=== PATIENT | male | born 1955 | race Caucasian/White ===

== ENCOUNTER → 2017-09-24 09:56 | Outpatient (CLI) | payer OTHER, SELFPAY ==
[2017-09-24 10:38] LABS: Hemoglobin A1C 5.9 % (0.0-7.0)
[2017-09-24 11:00] LABS: Alanine Aminotransferase 56 U/L (12-78); Albumin Level 3.8 gm/dL (3.4-5.0); Alkaline Phosphatase 66 U/L (46-116); Anion Gap 10.9 mEq/L (5-15); Aspartate Amino Transferase 30 U/L (15-37); Bilirubin,Total 0.8 mg/dL (0.2-1.0); Blood Urea Nitrogen 15 mg/dL (7-18); Calcium 8.4 mg/dL (8.5-10.1); Carbon Dioxide 28 mmol/L (21.0-32.0); Chloride 101 mmol/L (98-107); Chol/HDL Ratio 3.9 (1-3.5); Cholesterol 174 mg/dL (140-200); Creatinine,Serum 0.89 mg/dL (0.70-1.30); Estimated Glomerular Filt Rate 86 ml/min (>60); GFR (African American) 104 ML/MIN (>60); Globulin 3.7 gm/dl (1.3-3.2); Glucose 135 mg/dL (74-106); HDL Cholesterol 45 mg/dL (27-67); LDL Cholesterol 86 mg/dL (0-130); Potassium 3.9 mmoL/L (3.5-5.1); Prostate Specific Ag Screen 0.5 ng/mL (0.0-4.0); Sodium 136 mmol/L (136-145); Total Protein,Serum 7.5 gm/dL (6.4-8.2); Triglycerides 213 mg/dL (30-200); Uric Acid 6.5 mg/dL (2.6-7.2); VLDL Cholesterol 43 mg/dL (0-40)
[2017-09-24 12:07] LABS: Erythrocyte Sedimentation Rate 10 mm/hr (0-20)
== END ==
PROVIDERS: PCP Internal Medicine Adolescent Medicine; Visit Provider Nurse Practitioner Family
DX: R73.9 Hyperglycemia, unspecified (principal); R35.1 Nocturia; E78.2 Mixed hyperlipidemia; M10.9 Gout, unspecified
CPT/HCPCS: 36415; 80053; 80061; 83036; 84550; 85651; G0103

== ENCOUNTER → 2018-08-03 07:47 | Outpatient (CLI) | payer OTHER, SELFPAY ==
--- NOTE | 2018-08-03 07:50 | US_ITS ---
US gallbladder Ordering Physician: Sean Sellers MD Patient Age: 63 years: Male HISTORY: ITS.REASON: RUQ PAIN Upper abdominal pain TECHNIQUE: Ultrasound right upper quadrant COMPARISON : CT abdomen 11/19/2017 FINDINGS Pancreas. Moderate/Generous volume pancreas throughout, but no focal lesion.. Likely diffuse fatty changes. No pancreatic ductal dilatation. No fluid collection. . No ductal dilatation. Gallbladder. Upper normal size. No wall thickening. Sludge noted but No gallstones. 9.9 cm in length. With Septations.. Liver. Diffuse homogeneous increased echogenicity with diffuse fatty changes liver. Portal vein mildly enlarged measures up to 1.7 cm just medial to hilum of the liver. . It appears to have have normal flow direction. It Hepatic veins unremarkable. Common duct. Normal diameter 3.6 mm at the charisse hepatis region. Right kidney. 12.8 seem in length. Appears normal. Cortex well-maintained no hydronephrosis or mass. ----- IMPRESSION -------- 1. Hepatic steatosis. Diffuse homogeneous fatty changes of liver. 2. Slight dilated portal vein measures 1.6 cm. But demonstrates normal direction flow Nonspecific but can be seen with developing portal hypertension 3.. Gallbladder. Upper normal size no wall thickening or inflammation.. No gallstones. Minimal sludge. 4. Common duct normal
== END ==
PROVIDERS: PCP Internal Medicine Adolescent Medicine; Visit Provider Internal Medicine Adolescent Medicine
DX: R10.11 Right upper quadrant pain (principal)
CPT/HCPCS: 76705

== ENCOUNTER → 2018-08-10 10:17 | Outpatient (CLI) | payer OTHER, SELFPAY ==
--- NOTE | 2018-08-10 10:26 | NM_ITS ---
NM hepatobiliary wo pharm HISTORY: Right upper quadrant pain following eating ITS.REASON: ABD PAIN ORDERING PHYSICIAN: Sean Sellers MD PATIENT AGE: 63 years COMPARISON: 08/03/2018 DOSE: 8.42 MCI TC Choletec injected into LT hand Fatty Meal: Ensure. No pain reported with the fatty meal FINDINGS: Homogeneous activity is present within the hepatic parenchyma. Activity is present in the gallbladder by 30 minutes. Activity is present in the small bowel by 10 minutes. The gallbladder ejection fraction is calculated to be 17%. There was moderate amount of activity within the small bowel before the fatty meal was given which may contribute to the low gallbladder ejection fraction. The patient did not report pain or other symptoms during the fatty meal. IMPRESSION: 1. No evidence of common or cystic duct obstruction. 2. Low gallbladder ejection fraction of 17 %
--- NOTE | 2018-08-10 12:06 | HMH.ITSHM ---
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 []aspirin
== END ==
PROVIDERS: PCP Internal Medicine Adolescent Medicine; Visit Provider Internal Medicine Adolescent Medicine
DX: R10.11 Right upper quadrant pain (principal)
CPT/HCPCS: 78226; A9537

== ENCOUNTER → 2018-09-11 14:50 | Outpatient (CLI) | payer OTHER, SELFPAY ==
[2018-09-11 16:15] LABS: Basophils # 0.1 K/mm3 (0-0.2); Basophils % 1.2 % (0.1-2.0); Eosinophils # 0.3 K/mm3 (0.0-0.4); Eosinophils % 3.8 % (0.1-12.0); Hematocrit 45.2 % (42.0-52.0); Lymphocytes # 1.9 K/mm3 (0.7-4.5); Lymphocytes % 28.3 % (10-50); Mean Corpuscular HGB Conc 33.1 g/dL (31.8-35.4); Mean Corpuscular Hemoglobin 32.4 pg (27.0-31.2); Mean Corpuscular Volume 97.9 fl (80-94); Mean Platelet Volume 6.8 fl (7.4-10.4); Monocytes # 0.4 K/mm3 (0.1-1.0); Monocytes % 5.9 % (1.7-9.3); Neutrophils # 4.1 K/mm3 (1.8-7.8); Neutrophils % 60.9 % (37.0-80.0); Platelet Count 153 K/mm3 (142-424); Red Blood Count 4.62 M/mm3 (4.60-6.20); Red Cell Distribution Width 13.5 % (11.5-17.5); White Blood Count 6.8 K/mm3 (4.8-10.8)
[2018-09-11 16:20] LABS: Alanine Aminotransferase 51 U/L (12-78); Albumin Level 3.6 gm/dL (3.4-5.0); Albumin/Globulin Ratio 0.9 (1.1-1.8); Alkaline Phosphatase 80 U/L (46-116); Anion Gap 14.5 mEq/L (5-15); Bilirubin,Total 0.3 mg/dL (0.2-1.0); Blood Urea Nitrogen 17 mg/dL (7-18); Calcium 8.9 mg/dL (8.5-10.1); Carbon Dioxide 28 mmol/L (21.0-32.0); Chloride 103 mmol/L (98-107); Creatinine,Serum 1.02 mg/dL (0.70-1.30); Estimated Glomerular Filt Rate 73 ml/min (>60); GFR (African American) 89 ML/MIN (>60); Globulin 3.8 gm/dl (1.3-3.2); Sodium 141 mmol/L (136-145); Total Protein,Serum 7.4 gm/dL (6.4-8.2)
[2018-09-11 16:24] LABS: Aspartate Amino Transferase 41 U/L (15-37); Potassium 4.5 mmoL/L (3.5-5.1)
[2018-09-11 16:30] LABS: Glucose 162 mg/dL (74-106)
== END ==
PROVIDERS: Visit Provider Surgery
DX: K82.8 Other specified diseases of gallbladder (principal)
CPT/HCPCS: 36415; 80053; 85025; 93005

== ENCOUNTER → 2019-05-24 07:05 | Outpatient (CLI) | payer OTHER, SELFPAY ==
[2019-05-24 07:44] LABS: Basophils # 0.1 K/mm3 (0-0.2); Basophils % 1.2 % (0.1-2.0); Eosinophils # 0.3 K/mm3 (0.0-0.4); Eosinophils % 4.4 % (0.1-12.0); Hematocrit 46.9 % (42.0-52.0); Hemoglobin 14.9 g/dL (14.1-18.0); Lymphocytes # 1.9 K/mm3 (0.7-4.5); Lymphocytes % 27.8 % (10-50); Mean Corpuscular HGB Conc 31.8 g/dL (31.8-35.4); Mean Corpuscular Hemoglobin 32.1 pg (27.0-31.2); Mean Corpuscular Volume 101.1 fl (80-94); Mean Platelet Volume 7.1 fl (7.4-10.4); Monocytes # 0.5 K/mm3 (0.1-1.0); Monocytes % 7.5 % (1.7-9.3); Neutrophils # 4.1 K/mm3 (1.8-7.8); Neutrophils % 59.1 % (37.0-80.0); Platelet Count 165 K/mm3 (142-424); Red Blood Count 4.64 M/mm3 (4.60-6.20)
[2019-05-24 09:03] LABS: Alanine Aminotransferase 40 U/L (12-78); Albumin Level 3.6 gm/dL (3.4-5.0); Alkaline Phosphatase 76 U/L (46-116); Aspartate Amino Transferase 24 U/L (15-37); Bilirubin,Total 0.3 mg/dL (0.2-1.0); Blood Urea Nitrogen 17 mg/dL (7-18); Calcium 8.8 mg/dL (8.5-10.1); Carbon Dioxide 30 mmol/L (21.0-32.0); Chloride 103 mmol/L (98-107); Chol/HDL Ratio 4.7 (1-3.5); Cholesterol 191 mg/dL (140-200); Creatinine,Serum 0.98 mg/dL (0.70-1.30); Estimated Glomerular Filt Rate 77 ml/min (>60); GFR (African American) 93 ML/MIN (>60); Globulin 3.7 gm/dl (1.3-3.2); Glucose 140 mg/dL (74-106); HDL Cholesterol 41 mg/dL (27-67); LDL Cholesterol 74 mg/dL (0-130); Prostate Specific Ag Screen 0.9 ng/mL (0.0-4.0); Sodium 140 mmol/L (136-145); Total Protein,Serum 7.3 gm/dL (6.4-8.2); Triglycerides 379 mg/dL (30-200); Uric Acid 7.6 mg/dL (2.6-7.2); VLDL Cholesterol 76 mg/dL (0-40)
[2019-05-24 09:37] LABS: Erythrocyte Sedimentation Rate 17 mm/hr (0-20)
== END ==
PROVIDERS: Visit Provider Internal Medicine Adolescent Medicine
DX: Z12.5 Encounter for screening for malignant neoplasm of prostate (principal); E78.5 Hyperlipidemia, unspecified; M10.9 Gout, unspecified
CPT/HCPCS: 36415; 80053; 80061; 84550; 85025; 85651; G0103

== ENCOUNTER 2020-01-22 17:00 | Outpatient (RCR) | payer OTHER, SELFPAY ==
--- NOTE | 2020-01-15 16:58 | HMH.PTOPEV ---
PT Outpatient Evaluation Rehab PT Outpatient Evaluation Start: 01/15/20 16:14 Freq: Status: Active Protocol: Document 01/15/20 16:15 SENAMACO (Rec: 01/15/20 16:58 ROMAINE [id number]) Electronically Signed By Petar Sequeira PT 01/15/20 16:15 Outpatient Therapy Subjective History Subjective History This is the initial Physical Therapy evaluation for Luis F Rodriguez. Pt is a 64 y/o male referred to PT for c/o RLE and buttocks pain. Pt reports pain began ~ 2-3 weeks ago while plaing golf. Pt reports he was half way through the course when he felt a pop and pain in the R buttocks on the follow through of the swing. Pt reports pain was in R Ischial tuberosity, piriformis area in buttocks. Pt reports after that if he sits in hard chair he begins to have pain zakia RLE down to lateral calf. Pt reports some improvement since initial injury. Chief Complaint Pain,Stiff Symptom Type Ache,Throb,Sharp Symptoms Relieved By Rest/Positioning,Heat,OTC Meds Symptoms Aggravated By Sitting Prior Functional Limitations None Current Functional Limitations Desk Work/Reading,Recreation Activity Level of pain today (0-10) 2 Pain scale - at its best (0-10) 1 Pain scale - at its worst (0-10) 6 Lumbopelvic Eval Palapation tenderness right lumbar spinal tenderness No paraspinal tenderness No buttock tenderness Yes tenderness over symphysis pubis No Lumbar/Sacral Palpation Findings Tenderness Lumbar/Sacral Palpation Overall Comment TTP R SIJ, R Glut Mm, R greater troch Range of Motion Lumbar Spine ROM Reason Not Measured Within Functional Limits Special Tests Lumbar Spine Screen Negative Forward Bending Test- Standing Negative Left,Negative Right Forward Bending Test- Sitting Negative Left,Negative Right Hip Scouring (Quadrant) Test Negative Left,Negative Right Hip Piriformis Test Positive Right Sciatic Nerve Tension Test Negative Left,Negative Right Hip 90-90 Straight Leg Raise Test Negative Left,Negative Right Unilateral Straight Leg Raise (Lasegue) Negative Left,Negative Right Test Sacroiliac Joint Compression Test Negative Left,Negative Right Outpatient Therapy Assessment
== END 2020-01-22 17:05 | disposition home or self-care (01) ==
LOC: PT 17:00
PROVIDERS: PCP Internal Medicine Adolescent Medicine; Visit Provider Internal Medicine Adolescent Medicine
DX: G57.01 Lesion of sciatic nerve, right lower limb (principal)
CPT/HCPCS: 97010; 97014; 97163; G0283

== ENCOUNTER → 2020-07-15 15:52 | Outpatient (CLI) | payer OTHER, SELFPAY ==
--- NOTE | 2020-07-15 | XR_ITS ---
PROCEDURE: XR ORTHOPANTOGRAM CLINICAL INDICATION: ABCESSED TOOTH COMPARISON: No exams were available for comparison FINDINGS: No fracture or dislocation. No lytic or blastic change. There is normal mineralization. There are bilateral fillings. Lucency is noted over the lateral aspect of the medial incisor of the maxilla suggesting caries formation. Please correlate with physical exam. No mandibular abnormalities evident. The TMJs are unremarkable. There is missing lateral maxillary incisor with some irregular increased density at the tooth site. Maxillofacial CT may provide more thorough evaluation. Other findings:None. IMPRESSION: Possible caries of the medial maxillary incisor with missing lateral maxillary incisor with some irregular density at this region etiology indeterminate. Consider maxillofacial CT for more thorough evaluation. Dictated by: Joon Angel MD 07/15/2020 16:53 Joon Angel MD in OV 07/15/2020 16:53
== END ==
PROVIDERS: PCP Internal Medicine Adolescent Medicine; Visit Provider Internal Medicine Adolescent Medicine
DX: K04.7 Periapical abscess without sinus (principal)
CPT/HCPCS: 70355

== ENCOUNTER → 2020-08-06 10:01 | Outpatient (CLI) | payer OTHER, SELFPAY ==
[2020-08-07 10:25] LABS: Covid-19 Nasal PCR Sendout P&C Positive
== END ==
PROVIDERS: PCP Internal Medicine Adolescent Medicine; Visit Provider Internal Medicine Adolescent Medicine
DX: Z20.828 Contact with and (suspected) exposure to other viral communicable diseases (principal); U07.1 COVID-19
CPT/HCPCS: U0004

== ENCOUNTER → 2021-07-23 10:04 | Outpatient (CLI) | payer MEDICARE, SELFPAY ==
[2021-07-23 10:23] LABS: Basophils # 0.1 K/mm3 (0-0.2); Basophils % 0.9 % (0.1-2.0); Eosinophils # 0.3 K/mm3 (0.0-0.4); Eosinophils % 4.8 % (0.1-12.0); Hematocrit 45.2 % (42.0-52.0); Hemoglobin 15.9 g/dL (14.1-18.0); Lymphocytes # 1.9 K/mm3 (0.7-4.5); Mean Corpuscular HGB Conc 35.1 g/dL (31.8-35.4); Mean Corpuscular Hemoglobin 33.9 pg (27.0-31.2); Mean Corpuscular Volume 96.7 fl (80-94); Mean Platelet Volume 7.3 fl (7.4-10.4); Monocytes # 0.5 K/mm3 (0.1-1.0); Monocytes % 6.5 % (1.7-9.3); Neutrophils # 4.1 K/mm3 (1.8-7.8); Neutrophils % 59.8 % (37.0-80.0); Platelet Count 150 K/mm3 (142-424); Red Blood Count 4.68 M/mm3 (4.60-6.20); White Blood Count 6.9 K/mm3 (4.8-10.8)
[2021-07-23 10:37] LABS: Hemoglobin A1C 5.2 % (4.0-6.0)
[2021-07-23 11:13] LABS: Alanine Aminotransferase 35 U/L (12-78); Albumin Level 4.2 g/dl (3.5-5.0); Albumin/Globulin Ratio 1.4 (1.1-1.8); Alkaline Phosphatase 67 U/L (38-126); Anion Gap 10.9 mEq/L (5-15); Aspartate Amino Transferase 39 U/L (17-59); Bilirubin,Total 0.5 mg/dl (0.2-1.3); Blood Urea Nitrogen 18 mg/dl (9-20); Calcium 9.2 mg/dl (8.4-10.2); Carbon Dioxide 30 mmol/L (22.0-30.0); Chloride 101 mmol/L (98-107); Chol/HDL Ratio 3.8 (1-3.5); Cholesterol 190 mg/dl (140-200); Estimated Glomerular Filt Rate 84 ml/min (>60); GFR (African American) 102 ML/MIN (>60); Globulin 3.1 g/dL (1.3-3.2); Glucose 113 mg/dl (74-100); HDL Cholesterol 50 mg/dl (40-60); Potassium 4.9 mmoL/L (3.5-5.1); Sodium 137 mmol/L (136-145); Total Protein,Serum 7.3 g/dl (6.3-8.2); Triglycerides 199 mg/dl (30-150); Uric Acid 7.4 mg/dl (3.5-8.5); VLDL Cholesterol 40 mg/dL (0-40)
[2021-07-23 11:24] LABS: Direct LDL Cholesterol 113.12 mg/dL (100-129)
== END ==
PROVIDERS: Visit Provider Internal Medicine Adolescent Medicine
DX: E78.5 Hyperlipidemia, unspecified (principal); R73.9 Hyperglycemia, unspecified; M10.9 Gout, unspecified
CPT/HCPCS: 36415; 80053; 80061; 83036; 84550; 85025

== ENCOUNTER 2022-06-22 07:15 | Day surgery (SDC) | payer MEDICARE, SELFPAY ==
[2022-06-22 07:33] VITALS: BP 153/58; PULSE 65; RESP 18; TEMP 36.3; O2SAT 99; BMI 37.4
--- NOTE | 2022-06-22 07:42 | P.PN_ITS ---
[facility] [place] Medical History (Updated 06/22/22 @ 07:31 by Daryl Choi RN) No significant past medical history Surgical History (Updated 06/22/22 @ 07:31 by Daryl Choi RN) History of cholecystectomy Family History (Updated 06/22/22 @ 07:32 by Daryl Choi RN) Other Family history of diabetes mellitus Social History (Updated 06/22/22 @ 07:33 by Daryl Choi RN) Smoking Status: Never smoker alcohol intake: never substance use type: denies use current occupational status: employed and retired Travel in the last 8 weeks: None current occupational exposures/hazards: No caffeine: No [facility] Anesthesia Checklist Patient Identification Patient Identification: Verbal (Name & ) Structural Data Admitted From: Home Planned Operative Procedure/s: colonoscopy Consent for Planned Operative Procedure(s) Verified: Yes Additional verifications Anesthesia Reactions: No Hx Blood Transfusions: No Blood Transfusion Reaction: No Airway Assessment C-Spine Mobility Assessed: Yes TMJ Mobility Assessed: Yes Dentition: Good Dentition Neurological Assessment Level of Consciousness: Awake, Alert and Appropriate Anesthesia Plan Anesthesia Risk discussed: Yes Anesthesia Plan: Verified ASA Class: II Anesthesia Type: MAC
[2022-06-22 08:24] VITALS: O2SAT 98
--- NOTE | 2022-06-22 09:02 | HMH.SCOPE ---
Procedure: Date: 06/22/22 Patient Date of :: 1955 Procedure Performed:: Colonoscopy with polypectomy by means other than snare Indications:: Screening Performing Provider:: Eric Suazo MD Referring Provider:: . Sedation:: Monitored anesthesia care Procedure:: After informed consent was obtained the patient was taken to the endoscopy suite. Sedation ensued after the patient was transferred to the left lateral decubitus position. Pulse, blood pressure, and oxygen saturation were monitored throughout the procedure. Digital rectal exam revealed no significant abnormality. The colonoscope was placed in position. The entire colon was evaluated. The colonoscope was carefully removed and the patient was transferred to recovery in stable condition. Please see findings and specimens below for detail. Findings:: Bowel preparation moderate Hemorrhoidal cushions Profound lack of relaxation/spasticity Mild scattered sigmoid diverticulosis Colon polyps (see specimens) Specimens:: 3 adjacent sessile right colon polyps (cold snare and cold biopsy forceps) Mid right colon polyp (cold snare) Recommendations:: Timing of repeat colonoscopy is pending pathology but will likely be around 1 year with extended bowel preparation. Complications:: No immediate Estimated blood obtained (mL): 1
[2022-06-22 09:05] VITALS: BP 101/53; PULSE 71; RESP 16; TEMP 36.1; O2SAT 97
[2022-06-22 09:15] VITALS: BP 118/61; PULSE 68; RESP 18; O2SAT 97
[2022-06-22 09:25] VITALS: BP 121/68; PULSE 61; RESP 17; TEMP 36.3; O2SAT 98
[2022-06-22 09:35] VITALS: BP 136/73; PULSE 65; RESP 17; O2SAT 98
== END 2022-06-22 09:45 | disposition home or self-care (01) ==
PROVIDERS: PCP Internal Medicine Adolescent Medicine; Visit Provider Surgery
PROC: 0DJD8ZZ Inspection of Lower Intestinal Tract, Via Natural or Artificial Opening Endoscopic (ICD-10-PCS; principal; 2022-06-22 08:30)
DX: Z12.11 Encounter for screening for malignant neoplasm of colon (principal); D12.6 Benign neoplasm of colon, unspecified
CPT/HCPCS: 45380; 45385; 88305; J2704

== ENCOUNTER 2023-07-24 01:03 | Inpatient (IN) | payer MEDICARE, SELFPAY ==
[2023-07-24] VITALS (20 sets, daily range): BP systolic 106–148; BP diastolic 40–92; PULSE 56–145; RESP 13–19; TEMP 36.4–36.8; O2SAT 93–97; BMI 39.0; BMI 40.0
--- NOTE | 2023-07-24 01:13 | ECG_ITS ---
APPROVED REPORT Exam: Resting ECG HR:132 bpm ECG Measurements Heart Rate 132 AXES QRSd 129 QRS -59 QT 319 T 113 QTc 397 Conclusion ATRIAL FIBRILLATION WITH RAPID VENTRICULAR RESPONSE LEFT ANTERIOR FASCICULAR BLOCK [QRS AXIS <= -45, QR IN I, RS IN II] VOLTAGE CRITERIA FOR LVH [MEETS CRITERIA IN ONE OF: R(aVL), S(V1), R(V5), R(V5/V6)+S(V1)] POSSIBLE ANTERIOR MYOCARDIAL INFARCTION , PROBABLY OLD [30 ms Q WAVE IN V3/V4, OR R < 0.2 mV IN V4] ST DEVIATION AND MODERATE T-WAVE ABNORMALITY, CONSIDER LATERAL ISCHEMIA [-0.1+ mV T-WAVE IN I/aVL/V5/V6] ABNORMAL ECG UNCONFIRMED REPORT Electronically signed by : Sean Sellers MD 07/24/2023 07:32:14
[2023-07-24 01:38] LABS: Basophils # 0.1 K/mm3 (0-0.2); Basophils % 1.1 % (0.1-2.0); Eosinophils # 0.3 K/mm3 (0.0-0.4); Hematocrit 46.5 % (42.0-52.0); Hemoglobin 15.9 g/dL (14.1-18.0); Lymphocytes # 2.4 K/mm3 (0.7-4.5); Lymphocytes % 33.3 % (10-50); Mean Corpuscular HGB Conc 34.3 g/dL (31.8-35.4); Mean Corpuscular Hemoglobin 32.9 pg (27.0-31.2); Mean Corpuscular Volume 95.9 fl (80-94); Mean Platelet Volume 7.9 fl (7.4-10.4); Monocytes # 0.6 K/mm3 (0.1-1.0); Monocytes % 8.4 % (1.7-9.3); Neutrophils # 3.8 K/mm3 (1.8-7.8); Neutrophils % 53.4 % (37.0-80.0); Platelet Count 128 K/mm3 (142-424); Red Blood Count 4.85 M/mm3 (4.60-6.20); Red Cell Distribution Width 13.2 % (11.5-17.5); White Blood Count 7.1 K/mm3 (4.8-10.8)
[2023-07-24 01:42] LABS: Alanine Aminotransferase 54 U/L (12-78); Albumin Level 4.6 g/dl (3.5-5.0); Albumin/Globulin Ratio 1.3 (1.1-1.8); Alkaline Phosphatase 76 U/L (38-126); Anion Gap 12.5 mEq/L (5-15); Aspartate Amino Transferase 54 U/L (17-59); Bilirubin,Total 0.4 mg/dl (0.2-1.3); Blood Urea Nitrogen 12 mg/dl (9-20); Calcium 9.5 mg/dl (8.4-10.2); Carbon Dioxide 27 mmol/L (22.0-30.0); Chloride 100 mmol/L (98-107); Creatinine Clearance Estimated 127 mL/min (50-200); Estimated Glomerular Filt Rate 83 ml/min (>60); GFR (African American) 101 ML/MIN (>60); Globulin 3.5 g/dL (1.3-3.2); Glucose 114 mg/dl (74-100); Magnesium 1.8 mg/dl (1.6-2.3); Potassium 3.5 mmoL/L (3.5-5.1); Sodium 136 mmol/L (136-145); Total Protein,Serum 8.1 g/dl (6.3-8.2)
--- NOTE | 2023-07-24 01:53 | HMH.EDGENADL ---
Discharge Plan Disposition Patient Disposition: Admitted Chief Complaint: Arrhythmia/Palpitations Prescriptions Prescriptions: New rivaroxaban 15 mg tablet 15 mg PO DAILY Qty: 30 0RF diltiazem HCl 60 mg tablet 60 mg PO QID Qty: 120 0RF No Action aspirin 81 mg tablet,delayed release (DR/EC) 81 mg PO DAILY Referrals Follow up/Referrals: Sean Sellers MD [Primary Care Provider] - See instructions Clinical Impressions Clinical Impression: Atrial fibrillation with rapid ventricular response, Acute non-ST elevation myocardial infarction (NSTEMI) Discharge ED Provider: Drew Mcdaniel General Adult HPI General Chief complaint: Arrhythmia/Palpitations Stated complaint: Irregular Heart Rate Time Seen by Provider: 07/24/23 01:06 Mode of Arrival: Wheelchair Source of Information: Patient Limitations: No Limitations Description of Symptoms (Recalled from ER Triage Doc. by RN): pt reports waking up about 15 minutes ago feeling as if he had to belch, pt reports taking Tums with no relief, states felt his pulse and it felt irregular, denies SOA or N/V or chest pain History of Present Illness HPI narrative: 68-year-old male, history of obesity, no reported cardiac history, presents with palpitations. He reports that he woke up shortly prior to arrival feeling like he needed to belch. He felt like his heart rate was fast and irregular and skipping. He denies any chest pain shortness of breath. He has never had any issues with irregular heart rhythm in the past. He reports no recent fever or illness. He reports that he did have approximately 5 mixed drinks at a [employer] green party last night before arrival. Related Data Home Medications Medication Instructions Recorded Confirmed aspirin 81 mg tablet,delayed 81 mg PO DAILY Blood thinner 08/30/18 06/30/22 release Previous Rx's Medication Instructions Recorded diltiazem HCl 60 mg tablet 60 mg PO QID #120 tabs 07/24/23 rivaroxaban 15 mg tablet 15 mg PO DAILY #30 tabs 07/24/23 Allergies Allergy/AdvReac Type Severity Reaction Status Date / Time No Known Allergies Allergy Verified 06/30/22 09:38 [facility] Disclaimer: The information contained in this section may have been updated after the patient was seen, as this information can be updated by other users. Medical History (Updated 07/24/23 @ 04:05 by Drew Mcdaniel MD) No significant past medical history Surgical History (Updated 06/30/22 @ 09:39 by GAVIOTA Jones) History of cholecystectomy History of colonoscopy Family History Other Family history of diabetes mellitus Social History Smoking Status: Never smoker alcohol intake: never substance use type: denies use current occupational status: employed and retired Travel in the last 8 weeks: None current occupational exposures/hazards: No caffeine: No ROS Obtained: Yes All systems reviewed & no additional complaints except as documented Physical Exam General General appearance: alert, in no apparent distress and obese Head Head exam: atraumatic and normocephalic Eye Eye exam: Present normal appearance, PERRL and EOMI ENT ENT exam: Present normal oropharynx and normal external ear exam Neck Neck exam: Present normal inspection and full ROM Chest Chest inspection: Present normal inspection and symmetric chest wall rise; Absent tenderness Respiratory Respiratory exam: Present normal lung sounds bilaterally; Absent respiratory distress Cardiovascular Cardiovascular exam: Present tachycardia and irregular rhythm Abdominal Exam Abdominal exam: Present soft; Absent distention, tenderness or guarding Extremities Exam Extremities exam: Present normal inspection; Absent edema or joint swelling Back Exam Back exam: Present normal inspection; Absent tenderness Neurological Exam
[2023-07-24 02:00] LABS: T4 (Thyroxine) 8.6 ug/dl (5.53-11.0); Troponin I < 0.01 ng/ml (0.00-0.034)
[2023-07-24 02:12] LABS: Thyroid Stimulating Hormone 3.31 uIU/mL (0.465-4.68)
--- NOTE | 2023-07-24 02:33 | PC.NURSE ---
0220 20mg Diltizem IV given
[2023-07-24 03:46] LABS: Troponin I 0.09 ng/ml (0.00-0.034)
--- NOTE | 2023-07-24 03:47 | PC.NURSE ---
md at bedside discussing case with patient and sig other
--- NOTE | 2023-07-24 03:55 | PC.NURSE ---
speaking with hospitalist for admission at this time
--- NOTE | 2023-07-24 03:58 | PC.NURSE ---
contacted medical housekeeper for bed assignment. dx: afib w/rvr, nstemi;hospitalist. spoke with joanne blum
--- NOTE | 2023-07-24 04:00 | ECG_ITS ---
APPROVED REPORT Exam: Resting ECG HR:120 bpm ECG Measurements Heart Rate 120 AXES QRSd 129 QRS -59 QT 320 T 104 QTc 391 Conclusion ATRIAL FIBRILLATION WITH RAPID VENTRICULAR RESPONSE LEFT ANTERIOR FASCICULAR BLOCK [QRS AXIS <= -45, QR IN I, RS IN II] VOLTAGE CRITERIA FOR LVH [MEETS CRITERIA IN ONE OF: R(aVL), S(V1), R(V5), R(V5/V6)+S(V1)] POSSIBLE ANTERIOR MYOCARDIAL INFARCTION , OF INDETERMINATE AGE [30 ms Q WAVE IN V3/V4, OR R < 0.2 mV IN V4] MODERATE T-WAVE ABNORMALITY, CONSIDER LATERAL ISCHEMIA [-0.1+ mV T-WAVE IN I/aVL/V5/V6] ABNORMAL ECG UNCONFIRMED REPORT Electronically signed by : Sean Sellers MD 07/25/2023 14:46:31
--- NOTE | 2023-07-24 04:03 | PC.NURSE ---
repeat ekg performed.
--- NOTE | 2023-07-24 04:16 | EXP.HP ---
History of Present Illness *Admission Date: 07/24/23 *Reason for visit:: Palpitation *History of present illness: This is a 68-year-old morbidly obese male, history of obesity, HLD, no reported cardiac history, presents with palpitations. He reports that he woke up shortly prior to arrival feeling like he needed to belch. His initial though was indigestion. Took some tums. He reports that he did have approximately 5 mixed drinks at a [employer] green party last night before arrival. His at bedside is a nurse and took his heart rate and was fast and irregular and skipping. He denies any chest pain shortness of breath. He has never had any issues with irregular heart rhythm in the past. He reports no recent fever or illness. Admitted for further work up. [facility] Disclaimer: The information contained in this section may have been updated after the patient was seen, as this information can be updated by other users. Medical History (Updated 07/24/23 @ 06:42 by Sergo Arrington APRN) No significant past medical history Surgical History (Updated 07/24/23 @ 05:52 by Estefania Fernández RN) History of cardiac catheterization History of cholecystectomy History of colonoscopy Family History Other Family history of diabetes mellitus Social History (Updated 07/24/23 @ 05:27 by Janee Ramey RN) Smoking Status: Former smoker alcohol intake: current substance use type: denies use current occupational status: retired Travel in the last 8 weeks: None current occupational exposures/hazards: No caffeine: No Review of Systems Review of Systems Review of systems:: pertinent systems reviewed and negative unless documented below Meds Home Medications and Allergies Home Medications Medication Instructions Recorded Confirmed Type aspirin 81 mg tablet,delayed 81 mg PO DAILY [facility] 08/30/18 07/24/23 History release colchicine 0.6 mg tablet 0.6 mg PO DAILYP PRN Gout 07/24/23 07/24/23 History diltiazem HCl 60 mg tablet 60 mg PO QID #120 tabs 07/24/23 Rx fenofibrate 54 mg tablet 54 mg PO QPMWITHMEAL Triglycerides 07/24/23 07/24/23 History rivaroxaban 15 mg tablet 15 mg PO DAILY #30 tabs 07/24/23 Rx tadalafil 20 mg tablet 20 mg PO DIRECTED Sexual 07/24/23 07/24/23 History Activity New Prescriptions to Start Prescriptions: diltiazem HCl Drew Mcdaniel rivaroxaban Drew Mcdaniel Allergies Allergy/AdvReac Type Severity Reaction Status Date / Time No Known Allergies Allergy Verified 06/30/22 09:38 Exam Data for Last 24 hours Vital signs and Labs for Last 24 Hours: Temp Pulse Resp BP Pulse Ox O2 Del Method 97.5 F L 92 H 14 148/91 H 94 L Room Air 07/24/23 01:04 07/24/23 02:03 07/24/23 02:03 07/24/23 02:03 07/24/23 02:03 07/24/23 02:03 Laboratory Results - last 24 hr 07/24/23 01:21: WBC 7.1, RBC 4.85, Hgb 15.9, Hct 46.5, MCV 95.9 H, MCH 32.9 H, MCHC 34.3, RDW 13.2, Plt Count 128 L, MPV 7.9, Neut % (Auto) 53.4, Lymph % (Auto) 33.3, [place] % (Auto) 8.4, Eos % (Auto) 4.0, Baso % (Auto) 1.1, Neut # (Auto) 3.8, Lymph # (Auto) 2.4, [place] # (Auto) 0.6, Eos # (Auto) 0.3, Baso # (Auto) 0.1, Sodium 136, Potassium 3.5, Chloride 100, Carbon Dioxide 27, Anion Gap 12.5, BUN 12, Creatinine 0.90, Estimated Creat Clear 127, Estimated GFR 83, Est GFR ( Amer) 101, Glucose 114 H, Calcium 9.5, Magnesium 1.8, Total Bilirubin 0.4, AST 54, ALT 54, Alkaline Phosphatase 76, Troponin I < 0.01, Total Protein 8.1, Albumin 4.6, Globulin 3.5 H, Albumin/Globulin Ratio 1.3, TSH 3.31, Thyroxine (T4) 8.6 07/24/23 03:15: Troponin I 0.09 H I & O for Last 24 hours: Intake & Output 07/21/23 07/22/23 07/23/23 07/24/23 23:59 23:59 23:59 23:59 Weight 130.635 kg Constitutional Constitutional: mild distress, morbidly obese and cooperative *Routine HEENT Exam Head: Present normocephalic
--- NOTE | 2023-07-24 04:30 | PC.NURSE ---
Pt admitted to floor. HR 128-134 on admission. Bolus dose of diltiazem 33.25 mg IV administered followed by dilt gtt at 5 mg/hr per GLUE SIZE MACHINE OPERATOR order. GLUE SIZE MACHINE OPERATOR at bedside. HR 134 bpm, decreased to 70-80 bpm afib after dilt administration. pt AOx4; denies any chest pain, SOB, or N/V. Educated pt and SO regarding unit policies and fall precautions, including calling staff psychiatrist for assistance with IV pole and telemetry. Pt and SO verbalized understanding. SO Pascale ([phone]) returned home to retrieve home CPAP. Current VSS, afib on monitor.
--- NOTE | 2023-07-24 05:00 | PC.NURSE ---
MARTHA Trotter at bedside. Verbally ordered diltiazem 33.25 mg IV bolus for afib with RVR. Placed order with MARTHA Trotter at bedside, overlooking order. Verified with MARTHA and SUZAN Mac.
[2023-07-24 08:22] LABS: Chloride 102 mmol/L (98-107); Sodium 136 mmol/L (136-145)
[2023-07-24 08:25] LABS: Alanine Aminotransferase 54 U/L (12-78); Albumin Level 4.2 g/dl (3.5-5.0); Albumin/Globulin Ratio 1.4 (1.1-1.8); Alkaline Phosphatase 66 U/L (38-126); Aspartate Amino Transferase 58 U/L (17-59); Bilirubin,Total 0.6 mg/dl (0.2-1.3); Blood Urea Nitrogen 14 mg/dl (9-20); Calcium 9.2 mg/dl (8.4-10.2); Carbon Dioxide 26 mmol/L (22.0-30.0); Creatinine Clearance Estimated 130 mL/min (50-200); Estimated Glomerular Filt Rate 83 ml/min (>60); GFR (African American) 101 ML/MIN (>60); Glucose 124 mg/dl (74-100); Total Protein,Serum 7.2 g/dl (6.3-8.2)
[2023-07-24 08:26] LABS: Magnesium 1.8 mg/dl (1.6-2.3)
[2023-07-24 08:40] LABS: Basophils # 0.1 K/mm3 (0-0.2); Basophils % 0.7 % (0.1-2.0); Eosinophils # 0.1 K/mm3 (0.0-0.4); Eosinophils % 1.2 % (0.1-12.0); Hematocrit 43.9 % (42.0-52.0); Hemoglobin 15.2 g/dL (14.1-18.0); Lymphocytes # 1.7 K/mm3 (0.7-4.5); Lymphocytes % 20.9 % (10-50); Mean Corpuscular HGB Conc 34.6 g/dL (31.8-35.4); Mean Corpuscular Volume 95.5 fl (80-94); Mean Platelet Volume 7.7 fl (7.4-10.4); Monocytes # 0.6 K/mm3 (0.1-1.0); Monocytes % 7.1 % (1.7-9.3); Neutrophils # 5.7 K/mm3 (1.8-7.8); Neutrophils % 70.2 % (37.0-80.0); Platelet Count 141 K/mm3 (142-424); Red Cell Distribution Width 13.2 % (11.5-17.5); White Blood Count 8.1 K/mm3 (4.8-10.8)
[2023-07-24 09:06] LABS: 25-OH Vitamin D, Total 39.2 ng/mL (30-100)
--- NOTE | 2023-07-24 09:33 | HMH.PHAINT1 ---
Pharmacy Intervention Comments: MEDICATION RECONCILIATION COMPLETED ON PATIENT USING EXTERNAL FILL HISTORY FROM PHARMACY. PATIENT WAS PRESCRIBED XARELTO AND DILTIAZEM IN ED. -ELIZABETH FOUNTAIND
--- NOTE | 2023-07-24 10:17 | PC.NURSE ---
diltiazem drip stopped, PO dose given per emar, HR 86
[2023-07-25] VITALS (18 sets, daily range): BP systolic 117–152; BP diastolic 59–86; PULSE 56–80; RESP 15–20; TEMP 36.5–37; O2SAT 90–97; BMI 40.0
--- NOTE | 2023-07-25 03:00 | PC.NURSE ---
Handed off Report to SUZAN Mac
[2023-07-25 07:09] LABS: Chloride 105 mmol/L (98-107); Potassium 3.7 mmoL/L (3.5-5.1); Sodium 138 mmol/L (136-145)
[2023-07-25 07:11] LABS: Alanine Aminotransferase 46 U/L (12-78); Aspartate Amino Transferase 52 U/L (17-59); Blood Urea Nitrogen 16 mg/dl (9-20); Creatinine Clearance Estimated 130 mL/min (50-200); Estimated Glomerular Filt Rate 74 ml/min (>60); GFR (African American) 89 ML/MIN (>60)
[2023-07-25 07:12] LABS: Albumin Level 3.9 g/dl (3.5-5.0); Albumin/Globulin Ratio 1.3 (1.1-1.8); Alkaline Phosphatase 55 U/L (38-126); Anion Gap 8.7 mEq/L (5-15); Bilirubin,Total 0.6 mg/dl (0.2-1.3); Calcium 8.3 mg/dl (8.4-10.2); Carbon Dioxide 28 mmol/L (22.0-30.0); Globulin 3.1 g/dL (1.3-3.2); Glucose 120 mg/dl (74-100); Magnesium 1.9 mg/dl (1.6-2.3)
[2023-07-25 07:39] LABS: Basophils # 0.1 K/mm3 (0-0.2); Basophils % 0.5 % (0.1-2.0); Eosinophils # 0.3 K/mm3 (0.0-0.4); Eosinophils % 3.7 % (0.1-12.0); Hematocrit 42.2 % (42.0-52.0); Hemoglobin 14.7 g/dL (14.1-18.0); Lymphocytes # 2.3 K/mm3 (0.7-4.5); Lymphocytes % 26.9 % (10-50); Mean Corpuscular HGB Conc 34.8 g/dL (31.8-35.4); Mean Corpuscular Hemoglobin 33.6 pg (27.0-31.2); Mean Corpuscular Volume 96.6 fl (80-94); Monocytes # 0.5 K/mm3 (0.1-1.0); Monocytes % 6.2 % (1.7-9.3); Neutrophils # 5.3 K/mm3 (1.8-7.8); Neutrophils % 62.5 % (37.0-80.0); Platelet Count 130 K/mm3 (142-424); Red Blood Count 4.37 M/mm3 (4.60-6.20); Red Cell Distribution Width 13.1 % (11.5-17.5); White Blood Count 8.5 K/mm3 (4.8-10.8)
[2023-07-25 08:51] LABS: Hemoglobin A1C 5.6 % (4.0-6.0)
[2023-07-25 09:47] LABS: Troponin I 0.53 ng/ml (0.00-0.034)
--- NOTE | 2023-07-25 10:35 | CA_ITS ---
APPROVED REPORT EXAM: Comprehensive 2D, Doppler, and color-flow Echocardiogram [employer] Plant Supervisor: Terra Carlin RDCS Ht: 6 ft 0 in Wt: 295lbs BSA: 2.51 BP: 148/90 mmHg Indications: NSTEMI,AF,HLP M-Mode Dimensions RVDd 1.78 cm (0.9-2.6) LA Diam 4.30 cm (1.9-4.0) LVDd 5.69 cm (3.5-5.7) LVDs 3.99 cm (3.5-5.7) IVSd 0.93 cm (0.6-1.1) PWd 1.06 cm (0.6-1.1) EF (Teich) 56.30% FS 29.90% EDV (Teich) 159.40 mL TAPSE 2.50 (<1.7) ESV (Teich) 69.60 mL LV Diastology E Decel Time 243 (160-240 msec) E/A Ratio 1.4 Aortic Valve NANDA Index 0.84 cm2/m2 AoV Peak Duc. 177.0 (50-130 cm/s) AO Peak GR. 12.50 mmHg AO Mean GR. 6.20 (<5 mmHg) AO VTI 35.0 (18-25 cm) NANDA (VTI) 2.17 (2.5-4.5 cm2) Mitral Valve MV E Max Duc. 87.0 (40-130 cm/s) MV A Velocity 63.0 (40-130 cm/s) E/A Ratio 1.37 MV PHT 71.0 ms Left Ventricle The left ventricle is normal size. The left ventricular systolic function is normal. The left ventricular ejection fraction is within the normal range. There is increased LV wall thickness. The septum is asynchronous. Diastolic function is normal. LVEF is 60%. Normal biventricular systolic function. Right Ventricle The right ventricle is normal size. The right ventricular systolic function is normal. There is increased RV wall thickness. Atria The left atrium size is normal. There is no Doppler evidence of interatrial shunt. Aortic Valve The aortic valve is mildly thickened. There is no aortic valvular stenosis. Mild aortic regurgitation. Mitral Valve The mitral valve leaflets are mildly thickened. No evidence of mitral valve stenosis. Trace mitral regurgitation. Tricuspid Valve The tricuspid valve leaflets are thin and pliable. Trace tricuspid regurgitation. RVSP is normal. Pulmonic Valve The pulmonary valve is normal in structure. Trace pulmonic regurgitation. Great Vessels The aortic root is normal in size. The ascending aorta is normal in size. IVC is normal in size and collapses >50% with inspiration. Pericardium There is a small sized, anterior pericardial effusion. The largest pocket measures 0.4 cm in diastole. There are no echo indications of tamponade. Other Information Study Quality: Fair Conclusion Normal biventricular systolic function. Asynchronous septum. Mild AI. Small sized, anterior pericardial effusion. The largest pocket measures 0.4 cm in diastole. There are no echo indications of tamponade. Electronically signed by : Roseann Mcgee MD 07/25/2023 22:57:22
--- NOTE | 2023-07-25 11:40 | IR_ITS ---
APPROVED REPORT Patient Location: Inpatient Direct Response Consultant: MIRIAN Orourke RT (R) PROCEDURES Left heart catheterization Left ventriculogram Selective coronary angiogram INDICATION Acute non-ST elevation myocardial infarction Informed consent was obtained prior to the procedure. COMPLICATIONS None Estimated Blood Loss: Less than 10 mls TECHNIQUE One percent lidocaine used to anesthetize the right anterior aspect of the wrist. The right radial artery was accessed via the Seldinger technique. A 6 Georgian sheath was placed in the right radial artery. 2.5 mg of Verapamil, 800 mcg of nitroglycerin, 1mg Lidocaine and 5000 U Heparin were given through the arterial sheath. The papa catheter was also used to perform left heart catheterization, left ventriculogram and selective coronary angiogram. At the end of the procedure the sheath was removed good hemostasis was achieved using Traclet band, patient was transferred to the postop holding area in stable condition. ANGIOGRAPHIC RESULTS The left main artery Is a distal 80% stenosis with ruptured plaque and active thrombus The left anterior descending artery 20% stenosis. 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 Patient be transferred to tertiary center today for coronary bypass surgery today or tomorrow 2. Heparin drip and continue throughout the preoperative phase 3. Statin was continued throughout the perioperative phase 4. Aspirin 81 mg daily 5. Continue perioperative beta-blockers Electronically signed by : Aldo Connors MD 07/25/2023 13:37:28
--- NOTE | 2023-07-25 12:38 | PC.NURSE ---
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
--- NOTE | 2023-07-25 13:39 | EXP.DC.SUM ---
General Admission date:: 07/24/23 Discharge date: 07/25/23 HPI HPI HPI: This is a 68-year-old morbidly obese male, history of obesity, HLD, no reported cardiac history, presents with palpitations. He reports that he woke up shortly prior to arrival feeling like he needed to belch. His initial though was indigestion. Took some tums. He reports that he did have approximately 5 mixed drinks at a [place] libertarian last night before arrival. His at bedside is a nurse and took his heart rate and was fast and irregular and skipping. He denies any chest pain shortness of breath. He has never had any issues with irregular heart rhythm in the past. He reports no recent fever or illness. Admitted for further work up. Hospital Course Hospital Course Hospital Course: 68-year-old morbidly obese male, history of obesity, HLD, no reported cardiac history, presents with palpitations. He reports that he woke up shortly prior to arrival feeling like he needed to belch and had some chest tightness. On ER patient presented with afib with RVR. IV cardizem was given. Labs showed leaking troponin with elevation from <0.01-0.09. EKG was unconfirmed aged ST changes. Patient is chest pain free, hemodinamically stable. Discussed with cardiology and ER. admitted for cardiac work up. Patient responded to treatment for A-fib. Ultimately taken for left heart cath with critical findings. Plan to transfer to higher level of care. Problems addressed as follows: -AFib w/ RVR: -CAD -NSTEMI Admitted for telemetry and diltiazem drip. Cardiology was consulted. Patient did well over his first night of admission with improved heart rate control and was transition to p.o. diltiazem 180 mg extended release daily. Converted to sinus rhythm within the first 24 hours of admission. Troponin however continued to elevate and peaked at 0.5. Patient was taken for left heart cath where he was found to have critical left main disease. Findings as follows: IMPRESSION Critical distal left main disease with active thrombus Normal ejection fraction Mildly elevated LVEDP Discussed case with cardiology after procedure. Recommend transfer to tertiary center for coronary artery bypass surgery. was contacted, patient graciously excepted by Dr. Isaacs. Patient initiated on heparin drip. Continue statin therapy which patient has been on since prior to admission. Continue aspirin 81 mg daily. A1c obtained and found to be normal 5.6 Labs on day of transfer include white cell count of 8.5, hemoglobin of 14, platelets of 130. Creatinine and BUN of 1.0 and 16 respectively. Potassium 3.7 and magnesium 1.9. Patient's morbid obesity complicates all aspects of his care. Stable to trend for higher level of care for definitive management Exam Data for Last 24 hours Vital signs and Labs for Last 24 Hours: Temp Pulse Resp BP Pulse Ox O2 Del Method 98.2 F 67 15 149/70 H 93 L Room Air 07/25/23 11:51 07/25/23 13:30 07/25/23 13:30 07/25/23 13:30 07/25/23 13:30 07/25/23 13:20 Laboratory Results - last 24 hr 07/25/23 05:42: WBC 8.5, RBC 4.37 L, Hgb 14.7, Hct 42.2, MCV 96.6 H, MCH 33.6 H, MCHC 34.8, RDW 13.1, Plt Count 130 L, MPV 7.0 L, Neut % (Auto) 62.5, Lymph % (Auto) 26.9, [place] % (Auto) 6.2, Eos % (Auto) 3.7, Baso % (Auto) 0.5, Neut # (Auto) 5.3, Lymph # (Auto) 2.3, [place] # (Auto) 0.5, Eos # (Auto) 0.3, Baso # (Auto) 0.1, Sodium 138, Potassium 3.7, Chloride 105, Carbon Dioxide 28, Anion Gap 8.7, BUN 16, Creatinine 1.00, Estimated Creat Clear 130, Estimated GFR 74, Est GFR ( Amer) 89, Glucose 120 H, Hemoglobin A1c 5.6, Calcium 8.3 L, Magnesium 1.9, Total Bilirubin 0.6, AST 52, ALT 46, Alkaline Phosphatase 55, Troponin I 0.53 H, Total Protein 7.0, Albumin 3.9, Globulin 3.1, Albumin/Globulin Ratio 1.3 I & O for Last 24 hours: Intake & Output 07/22/23 07/23/23 07/24/23 07/25/23 23:59 23:59 23:59 23:59 Intake Total 1230 / 1230 0 / 0 Output Total 0 / 0 0 / 0 [place]
--- NOTE | 2023-07-25 14:06 | PC.NURSE ---
checked with pharmacy before starting heparin gtt, stated no need to get a PTT before starting the heparin gtt
--- NOTE | 2023-07-25 14:45 | EXP.CARD.CON ---
History of Present Illness History of Present Illness Consult date: 07/25/23 Requesting physician: Ulysses [place] Consult reason: chest pain and atrial fibrillation Chief complaint: indigestion, palpitations History of present illness: This is a 68-year-old white gentleman who presented to the emergency department complaints of palpitations. The patient states that he went to a green party on Tuesday night and had about 5 mixed drinks. He states the next morning he woke up with indigestion. The patient describes his indigestion as a tight sensation across the top part of his chest. He states it did not radiate and there was no associated shortness of breath, nausea or diaphoresis. He states that he did have racing of the heart and felt that his heart was beating really fast. The patient states that when he drinks bourbon he wakes up with this indigestion sensation. He states he typically will take a Tums and the sensation resolved. He states he took times but had no improvement in the indigestion sensation. He checked his heart rate and it was high. His girlfriend is a retired RN and also checked his heart rate and stated that it was fast and irregular and skipping so she advised him to come to the emergency department. The patient was found to be in atrial fibrillation with RVR. He was treated with diltiazem and has been switched over to oral medication and has subsequently converted to sinus rhythm. He also had an elevated troponin consistent with a non-STEMI. Currently he denies any chest pain or pressure. He denies any shortness of breath or edema. He denies any fever, chills, nausea, vomiting, diarrhea, PND orthopnea. He denies any palpitations of his heart or indigestion symptoms this morning. [facility] Disclaimer: The information contained in this section may have been updated after the patient was seen, as this information can be updated by other users. Medical History (Updated 07/25/23 @ 14:49 by Hannah Rizvi APRN) Hyperlipidemia Hypertension No significant past medical history Surgical History (Updated 07/24/23 @ 05:52 by Estefania Fernández RN) History of cardiac catheterization History of cholecystectomy History of colonoscopy Family History Other Family history of diabetes mellitus Social History (Updated 07/24/23 @ 05:27 by Janee Ramey RN) Smoking Status: Former smoker alcohol intake: current substance use type: denies use current occupational status: retired Travel in the last 8 weeks: None current occupational exposures/hazards: No caffeine: No Review of Systems Review of Systems Review of systems:: pertinent systems reviewed and negative unless documented below Constitutional Constitutional: Reports system reviewed and no additional complaints, except as documented Eyes Eyes: Reports system reviewed and no additional complaints, except as documented ENT Ears, Nose, Mouth, and Throat: Reports system reviewed and no additional complaints, except as documented *Cardiovascular Cardiovascular: Reports system reviewed and no additional complaints, except as documented, Reports chest pain (Indigestion), Reports palpitations and Reports rapid heart rate *Respiratory Respiratory: Reports system reviewed and no additional complaints, except as documented *Gastrointestinal Gastrointestinal: Reports system reviewed and no additional complaints, except as documented and Reports dyspepsia *Genitourinary Genitourinary: Reports system reviewed and no additional complaints, except as documented *Musculoskeletal Musculoskeletal: Reports system reviewed and no additional complaints, except as documented Integumentary/Breasts Skin/Breast: Reports system reviewed and no additional complaints, except as documented *Neurologic Neurologic: Reports system reviewed and no additional complaints, except as documented Psychiatric Psychiatric: Reports syste
[2023-07-25 16:58] LABS: PTT Heparin (inpatient only) 143.5 Seconds (23.6-34.0)
--- NOTE | 2023-07-25 17:09 | PC.NURSE ---
Per pharmacy, heparin drip decreased to 1600 ml. Verified by Sydni Valdez RN
== END 2023-07-25 17:10 | disposition short-term general hospital (02) | DRG 281 ==
LOC: ER 04:47 → 2ND 10:37
PROVIDERS: Internal Medicine; Nurse Practitioner Family; Admitting Provider Internal Medicine Adolescent Medicine; Emergency Provider Emergency Medicine; PCP Internal Medicine Adolescent Medicine; Visit Provider Internal Medicine Adolescent Medicine
PROC: 4A023N7 Measurement of Cardiac Sampling and Pressure, Left Heart, Percutaneous Approach (ICD-10-PCS; principal; 2023-07-25 13:30)
DX: I48.91 Unspecified atrial fibrillation (principal); I21.4 Non-ST elevation (NSTEMI) myocardial infarction; Z68.41 Body mass index [BMI] 40.0-44.9, adult; E78.1 Pure hyperglyceridemia; E66.01 Morbid (severe) obesity due to excess calories; Z87.891 Personal history of nicotine dependence; I25.119 Atherosclerotic heart disease of native coronary artery with unspecified angina pectoris; I10 Essential (primary) hypertension
CPT/HCPCS: 93452; 36415; 80053; 82306; 83036; 83735; 84436; 84443; 84484; 85025; 85730; 93005; 93306; 93458; 99152; 99291; C1725; C1760; C1769; J1644; Q9967

== ENCOUNTER 2023-08-30 10:00 | Outpatient (RCR) | payer MEDICARE, SELFPAY | END 2023-10-31 10:00 | disposition home or self-care (01) | LOC: PT 10:00 | PROVIDERS: Visit Provider Thoracic Surgery (Cardiothoracic Vascular Surgery) | DX: I25.10 Atherosclerotic heart disease of native coronary artery without angina pectoris (principal); Z95.1 Presence of aortocoronary bypass graft | CPT/HCPCS: 93798 ==

== ENCOUNTER 2023-12-23 07:20 | Outpatient (CLI) | payer MEDICARE, SELFPAY ==
[2023-12-23 08:51] LABS: Alanine Aminotransferase 45 U/L (12-78); Albumin Level 3.9 g/dl (3.5-5.0); Alkaline Phosphatase 90 U/L (38-126); Anion Gap 12.3 mEq/L (5-15); Aspartate Amino Transferase 51 U/L (17-59); Bilirubin,Direct 0.1 mg/dl (0.0-0.4); Bilirubin,Indirect 0.5 mg/dL (0.0-0.9); Bilirubin,Total 0.6 mg/dl (0.2-1.3); Bilirubin,Unconjugated 0.5 mg/dL (0.0-1.1); Blood Urea Nitrogen 19 mg/dl (9-20); Carbon Dioxide 28 mmol/L (22.0-30.0); Chloride 102 mmol/L (98-107); Chol/HDL Ratio 3.9 (1-3.5); Cholesterol 185 mg/dl (140-200); Creatine Kinase 191 U/L (55-170); Estimated Glomerular Filt Rate 74 ml/min (>60); GFR (African American) 89 ML/MIN (>60); Glucose 109 mg/dl (74-100); HDL Cholesterol 47 mg/dl (40-60); Potassium 4.3 mmoL/L (3.5-5.1); Sodium 138 mmol/L (136-145); Total Protein,Serum 7.1 g/dl (6.3-8.2); Triglycerides 303 mg/dl (30-150); VLDL Cholesterol 61 mg/dL (0-40)
[2023-12-23 09:02] LABS: Direct LDL Cholesterol 89.18 mg/dL (100-129)
== END 2023-12-23 23:59 | disposition home or self-care (01) ==
LOC: LAB 07:21
PROVIDERS: PCP Internal Medicine Adolescent Medicine; Visit Provider Nurse Practitioner
DX: M79.10 Myalgia, unspecified site (principal); E78.2 Mixed hyperlipidemia
CPT/HCPCS: 36415; 80048; 80061; 80076; 82550

== ENCOUNTER 2024-01-04 15:11 | Outpatient (CLI) | payer MEDICARE, SELFPAY ==
--- NOTE | 2024-01-04 15:16 | CA_ITS ---
APPROVED REPORT EXAM: Comprehensive 2D, Doppler, and color-flow Echocardiogram [employer] Defence Officer: Jennyfer Duong CRT Ht: 6 ft 0 in Wt: 286lbs BSA: 2.48 BP: 126/104 mmHg Indications: Atrial Fibrillation, CAD, Hyperlipidemia, Hypertension/HDD, ex smoker, cabg 2D Dimensions Left Atrium 4.15 cm LA Volume 56.60 mL LVOT 2.09 cm (M/F) 1.5-2.5 LA Volume Index 22.80 mL/m2 (M/F) 16-34 EF AP4 54.00 % GL Strain -16.8 % M-Mode Dimensions RVDd 3.25 cm (0.9-2.6) LVDd 6.26 cm (3.5-5.7) Ao Diam 4.36 cm (2.0-3.7) LVDs 4.49 cm (3.5-5.7) IVSd 1.60 cm (0.6-1.1) PWd 0.48 cm (0.6-1.1) EF (Teich) 53.60% FS 28.30% EDV (Teich) 198.30 mL TAPSE 2.51 (<1.7) ESV (Teich) 92.00 mL LV Diastology E Decel Time 214 (160-240 msec) E/A Ratio 1.47 MED E' 6.2 (>= 7 cm/sec) MED A' 8.50 cm/s E'/MED E' Ratio 13.50 (<= 14) LAT E' 8.8 (>= 10 cm/sec) LAT A' 8.00 cm/s E/LAT E' Ratio 9.51 (<= 14) Aortic Valve LVOT Max 127.0 (70-110 cm/s) NANDA Index 0.91 cm2/m2 LVOT VTI 27.06 cm AoV Peak Duc. 205.0 (50-130 cm/s) AO Peak GR. 12.90 mmHg AO Mean GR. 9.40 (<5 mmHg) AO VTI 41.0 (18-25 cm) NANDA (VTI) 2.26 (2.5-4.5 cm2) Mitral Valve MV E Max Duc. 84.0 (40-130 cm/s) MV A Velocity 57.0 (40-130 cm/s) E/A Ratio 1.47 MV Decel. Time 214 (160-240 ms) Tricuspid Valve TR P. Velocity 215.00 cm/s RAP Estimate 10.00 mmHg RVSP 28.50 mmHg Left Ventricle The left ventricle is normal size. The left ventricular systolic function is normal. The left ventricular ejection fraction is within the normal range. There is increased LV wall thickness. There is normal LV segmental wall motion. Transmitral Doppler flow pattern suggests impaired LV relaxation. LVEF is 55%. Right Ventricle Right ventricle is mildly dilated. Right ventricle is mildly hypokinetic. Atria The left atrium size is normal. The right atrium size is normal. There is no Doppler evidence of interatrial shunt. Aortic Valve The aortic valve is mildly thickened. There is no aortic valvular stenosis. No aortic regurgitation is present. Mitral Valve The mitral valve leaflets are mildly thickened. No evidence of mitral valve stenosis. Trace mitral valve regurgitation noted. Tricuspid Valve The tricuspid valve leaflets are thin and pliable. Trace tricuspid regurgitation. There is insufficient TR jet to estimate RVSP. Pulmonic Valve The pulmonary valve is not well-visualized. Great Vessels The aortic root is normal in size. The ascending aorta is normal in size. IVC is normal in size and collapses >50% with inspiration. Pericardium There is no pericardial effusion. Other Information Study Quality: Fair Conclusion Normal LV systolic function. Mild RV dilation with mild reduction in RV function. No significant valvular stenosis or regurgitation in the visualized valves. Electronically signed by : Roseann Mcgee MD 01/11/2024 12:00:44
== END 2024-01-04 23:59 | disposition home or self-care (01) ==
LOC: RT 15:11
PROVIDERS: PCP Internal Medicine Adolescent Medicine; Visit Provider Nurse Practitioner
DX: R06.00 Dyspnea, unspecified (principal); Z95.1 Presence of aortocoronary bypass graft
CPT/HCPCS: 93306

== ENCOUNTER 2024-01-17 15:40 | Outpatient (CLI) | payer MEDICARE, SELFPAY ==
[2024-01-17 16:25] LABS: Chloride 105 mmol/L (98-107); Potassium 4.5 mmoL/L (3.5-5.1); Sodium 137 mmol/L (136-145)
[2024-01-17 16:28] LABS: Anion Gap 11.5 mEq/L (5-15); Blood Urea Nitrogen 21 mg/dl (9-20); Calcium 9.2 mg/dl (8.4-10.2); Carbon Dioxide 25 mmol/L (22.0-30.0); Creatine Kinase 280 U/L (55-170); Estimated Glomerular Filt Rate 74 ml/min (>60); GFR (African American) 89 ML/MIN (>60); Glucose 92 mg/dl (74-100)
== END 2024-01-17 23:59 | disposition home or self-care (01) ==
PROVIDERS: PCP Internal Medicine Adolescent Medicine; Visit Provider Nurse Practitioner
DX: R74.8 Abnormal levels of other serum enzymes (principal); I48.0 Paroxysmal atrial fibrillation; E78.2 Mixed hyperlipidemia; I10 Essential (primary) hypertension; Z87.891 Personal history of nicotine dependence
CPT/HCPCS: 36415; 80048; 82550

== ENCOUNTER 2024-06-05 08:29 | Outpatient (POV) | payer MEDICARE, SELFPAY | END 2024-06-05 23:59 | disposition home or self-care (01) | LOC: SC 08:30 | PROVIDERS: Visit Provider Specialist/Technologist | DX: Z00.00 Encounter for general adult medical examination without abnormal findings (principal) ==

== ENCOUNTER 2025-06-04 08:14 | Outpatient (CLI) | payer MEDICARE, SELFPAY ==
--- NOTE | 2025-06-04 08:16 | US_ITS ---
FINAL REPORT CLINICAL HISTORY: ELEVATED LIVER ENZYMES FINDINGS: RIGHT UPPER QUADRANT ULTRASOUND Technique: Ultrasound images of the right upper quadrant were obtained. There is extensive diffuse fatty infiltration of the liver. The gallbladder is absent. The common duct measures 2 mm. The right kidney is unremarkable. IMPRESSION: Extensive fatty liver. Status postcholecystectomy. Reviewed, Interpreted and Dictated by Greg Lagunas MD Transcribed by Evelyn Conde Authenticated and . [facility]
== END 2025-06-04 23:59 | disposition home or self-care (01) ==
LOC: RAD 08:14
PROVIDERS: PCP Internal Medicine Adolescent Medicine; Visit Provider Nurse Practitioner Family
DX: K76.0 Fatty (change of) liver, not elsewhere classified (principal); R74.8 Abnormal levels of other serum enzymes; Z90.49 Acquired absence of other specified parts of digestive tract
CPT/HCPCS: 76705